=== PATIENT | female | born 1940 | race Caucasian/White ===

== ENCOUNTER 2020-11-18 21:57 | Observation (INO) ==
[2020-11-18] MEDS ORDERED: Aspirin 325 MG TABLET PO ONE (22:23)
[2020-11-18 22:33] LABS: Basophils % 0.3 %; Eosinophils # 0.1 K/mcL (0.0-0.6); Eosinophils % 1.2 %; Hemoglobin 15.7 g/dL (11.5-15.4); Immature Granulocytes % 0.3 % (0-4); Lymphocytes # 1.6 K/mcL (0.6-4.6); Lymphocytes % 23.6 %; Mean Corpuscular HGB Conc 34.1 g/dL (31.6-35.5); Mean Corpuscular Hemoglobin 31.3 pg (28.0-33.3); Mean Corpuscular Volume 91.8 fL (83.0-100.0); Monocytes # 0.7 K/mcL (0.0-1.3); Monocytes % 10.5 %; Neutrophils # 4.4 K/mcL (1.6-8.9); Platelet Count 170 K/mcL (140-400); Red Blood Count 5.01 M/mcL (3.82-4.97); Red Cell Distribution Width 12.3 % (11.5-14.5); Segmented Neutrophils % 64.1 %; White Blood Count 6.8 K/mcL (4.3-11.1)
[2020-11-18 22:57] LABS: BUN/Creatinine Ratio 18 (6-26); Blood Urea Nitrogen 11 mg/dL (8-23); Calcium 9.6 mg/dL (8.6-10.3); Carbon Dioxide 22 mEq/L (23-29); Chloride 102 mEq/L (98-107); Glucose 127 mg/dL (70-105); Osmolality,Calculated 279 (280-300); Sodium 134 mEq/L (136-145); eGFR For African Americans > 60 (> 60); eGFR For Non-African Americans > 60 (> 60)
[2020-11-18 22:58] LABS: Troponin I < 0.03 ng/mL (< 0.04)
[2020-11-18] MEDS ORDERED: Isovue-370 500 ML BOTTLE IVP ONE (23:21)
[2020-11-19] MEDS ORDERED: Nitroglycerin 0.4 MG TAB.SUBL SL PRN (02:01)
[2020-11-19 02:32] LABS: Thyroid Stimulating Hormone 0.533 mcIU/mL (0.340-5.600)
[2020-11-19 03:09] LABS: Basophils % 0.5 %; Eosinophils # 0.1 K/mcL (0.0-0.6); Hematocrit 45.8 % (35.3-44.9); Hemoglobin 15.7 g/dL (11.5-15.4); Immature Granulocytes % 0.2 % (0-4); Lymphocytes # 1.5 K/mcL (0.6-4.6); Lymphocytes % 25.1 %; Mean Corpuscular HGB Conc 34.3 g/dL (31.6-35.5); Mean Corpuscular Hemoglobin 31.5 pg (28.0-33.3); Mean Corpuscular Volume 91.8 fL (83.0-100.0); Mean Platelet Volume 8.8 fL (9.4-12.4); Monocytes # 0.5 K/mcL (0.0-1.3); Monocytes % 8.7 %; Neutrophils # 3.8 K/mcL (1.6-8.9); Platelet Count 178 K/mcL (140-400); Red Blood Count 4.99 M/mcL (3.82-4.97); Red Cell Distribution Width 12.4 % (11.5-14.5); Segmented Neutrophils % 64.5 %; White Blood Count 5.9 K/mcL (4.3-11.1)
[2020-11-19 03:12] LABS: INR 1.3; Prothrombin Time 14.4 Seconds (9.4-12.1)
[2020-11-19 03:14] LABS: Activated Partial Thrombo Time 28.9 Seconds (26.0-36.0)
[2020-11-19 03:24] LABS: Alanine Aminotransferase 9 Units/L (7-52); Albumin 4.2 g/dL (3.5-5.7); Albumin/Globulin Ratio 1.1 (1.1-2.2); Alkaline Phosphatase 71 Units/L (34-104); Aspartate Amino Transferase 14 Units/L (13-39); BUN/Creatinine Ratio 17 (6-26); Blood Urea Nitrogen 10 mg/dL (8-23); Calcium 9.5 mg/dL (8.6-10.3); Carbon Dioxide 24 mEq/L (23-29); Chloride 102 mEq/L (98-107); Globulin 3.7 g/dL (2.4-3.5); Glucose 125 mg/dL (70-105); Osmolality,Calculated 281 (280-300); Potassium 4.1 mEq/L (3.5-5.1); Sodium 135 mEq/L (136-145); Total Protein 7.9 g/dL (6.4-8.9); eGFR For African Americans > 60 (> 60); eGFR For Non-African Americans > 60 (> 60)
[2020-11-19 10:06] LABS: Thyroid Stimulating Hormone 0.463 mcIU/mL (0.340-5.600)
[2020-11-19 10:59] VITALS: BP 155/66
== END 2020-11-19 13:43 | disposition home or self-care (01) ==
LOC: 3ANU 21:57 → EMEROOARM 21:57 → SUATTDRO 11-19 02:06 → 3ANU 11-19 02:15
PROVIDERS: ADMIT Internal Medicine; ATTEND Internal Medicine